=== PATIENT | female | born 1965 | race Two or more races ===

== ENCOUNTER 2017-06-28 12:42 | Emergency (ER) | payer BC ==
[~2017-06-28] VITALS: Ht 154.9 cm; Wt 90.7 kg
[2017-06-28] MEDS ORDERED: diphenhdrAMINE HCL 50 MG/1 ML VL IV ONE (14:15)
[2017-06-28] MEDS ORDERED: ALBUTEROL SULF 2.5 MG/0.5ML(0.5%) NEB SOLN NEB ONE (14:15)
[2017-06-28] MEDS ORDERED: EPINEPHrine HCL 1 MG/1 ML AMP SC ONE (14:15)
[2017-06-28] MEDS ORDERED: IPRATROPIUM BROM 0.5 MG/2.5ML INH SOL NEB ONE (14:15)
[2017-06-28] MEDS ORDERED: methylPREDNISolone SOD SUCC 125 MG/2 ML VL IV ONE (14:15)
[2017-06-28] MEDS ORDERED: ONDANSETRON HCL 4 MG/2 ML VIAL ONE (15:13)
[2017-06-28 16:11] VITALS: BP 132/70
== END 2017-06-28 16:13 | disposition home or self-care (01) ==
LOC: ER 12:42
DX: J45.901 Unspecified asthma with (acute) exacerbation (principal); T78.40XA Allergy, unspecified, initial encounter
CPT/HCPCS: 94640; 96374; 96375; 99284; J1200; J2405; J2930